=== PATIENT | male | born 1985 | race Caucasian/White ===

== ENCOUNTER 2024-01-02 09:50 | Outpatient (RCR) | payer BC, SELFPAY ==
--- NOTE | 2024-01-02 10:41 | CTCFLWUP_ITS ---
[facility] [address] [place], [place] [address] FOLLOW-UP NOTE Date: 01/02/2024 MR#: [id number] Name: RENE HERNANDEZ : 1985 Dx: [id number] Malignant neoplasm of thyroid gland Identification. 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 Desean Gonzales. Received 30 mCi of I-131 on 10/25/2023 and followed radiation safety guidelines. Total body iodine scan 11/01/2023 showed uptake in thyroid bed only with no additional abnormal areas. For his young age of 38 this is stage I. Patient has been taking 150 mcg of Synthroid a day. This was recently upped to 188 mcg a day. Most recent labs 11/16/2023 showed calcium to be 9.8 thyroglobulin antibody less than 0.9 TSH 38 ( 0.4 ? 5.6) Free T4 1.27 ( 0.89-1.76) Patient feeling tired states that he is delaying conception for 1 year since the procedure. We are awaiting additional labs done recently. The [employer] missing his thyroid medications. We will check ultrasound and see him back in 3 months. Labs will be ordered via [facility]. Electronically signed by: Hernandez Jimenez M.D. 01/02/2024 10:39 AM
== END 2024-01-13 23:59 | disposition home or self-care (01) ==
LOC: SCTC 09:50
PROVIDERS: PCP Family Medicine; Referring Provider Family Medicine; Visit Provider Radiology Therapeutic Radiology
DX: C73 Malignant neoplasm of thyroid gland (principal); E89.0 Postprocedural hypothyroidism; Z79.890 Hormone replacement therapy
CPT/HCPCS: 99213; G0463

== ENCOUNTER → 2024-01-24 | Outpatient (CLI) | payer BC, SELFPAY ==
--- NOTE | 2024-01-24 12:30 | XR_ITS ---
Examination: Thyroid sonography complete TECHNIQUE: By resolution grayscale sonographic images thyroid lobes with color flow analysis Exam date and time: January 24, 2024 1247 hours INDICATIONS: Thyroidectomy 8 months ago secondary to thyroid cancer FINDINGS: No thyroid tissue No soft tissue mass in the thyroid bed IMPRESSION: No thyroid tissue No soft tissue mass in the thyroid bed
== END | disposition home or self-care (01) ==
LOC: CDIM 12:20
PROVIDERS: Referring Provider Radiology Therapeutic Radiology; Visit Provider Radiology Therapeutic Radiology
DX: C73 Malignant neoplasm of thyroid gland (principal)
CPT/HCPCS: 76536

== ENCOUNTER 2024-04-16 10:12 | Outpatient (RCR) | payer BC, SELFPAY ==
--- NOTE | 2024-04-16 11:51 | CTCFLWUP_ITS ---
[facility] [address] [place], [place] [address] FOLLOW-UP NOTE Date: 04/16/2024 MR#: [id number] Name: RENE HERNANDEZ : 1985 Dx: [id number] Malignant neoplasm of thyroid gland Identification. 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 Desean Gonzales. 30 mCi I-131 10/25/2023 followed by total body iodine scan 11/01/2023 which showed uptake in thyroid bed only. For his young age this is stage I. Patient now taking 200 mcg of Synthroid a day. Being managed by cable puller. Ultrasound of thyroid 01/24/2024 no thyroid tissue or any sign of recurrence. Unfortunately thyroglobulin thyroid gland antibody ordered results are not available. This was ordered again today. I told patient that I will discuss the results afterward in a couple weeks. Patient has a meeting with cable puller regarding the thyroid hormone situation as well as recent MRI of the brain. Electronically signed by: Hernandez Jimenez M.D. 04/16/2024 11:48 AM
== END 2024-05-13 23:59 | disposition home or self-care (01) ==
LOC: SCTC 10:12
PROVIDERS: PCP Family Medicine; Referring Provider Radiology Therapeutic Radiology; Visit Provider Radiology Therapeutic Radiology
DX: C73 Malignant neoplasm of thyroid gland (principal); E89.0 Postprocedural hypothyroidism; Z79.890 Hormone replacement therapy
CPT/HCPCS: 99213; G0463